=== PATIENT | male | born 1980 | race Caucasian/White ===

== ENCOUNTER 2017-06-11 11:01 | Outpatient (CLI) | payer OTHER ==
[~2017-06-11 11:01] MED LIST: GADOPENTETATE DIMEGLUMINE 5 ML VIAL IVP ONE; IOTHALAMATE MEGLUMINE 50 ML VIAL ONE
[2017-06-11] MEDS ORDERED: GADOPENTETATE DIMEGLUMINE 5 ML VIAL IVP ONE (12:04)
[2017-06-11] MEDS ORDERED: IOTHALAMATE MEGLUMINE 50 ML VIAL IVP ONE (12:04)
[2017-06-11] MEDS ORDERED: LIDOCAINE 1% 10 ML MDV SUBQ ONE (12:04)
--- NOTE | 2017-06-11 12:47 | XRAY Report ---
FLUOROSCOPICALLY-GUIDED RIGHT SHOULDER INJECTION FOR MR ARTHROGRAM: 06/11/2017 CLINICAL INDICATION: Pain. FINDINGS: Following obtaining informed consent, the patient's right shoulder was prepped and draped in the usual sterile fashion. The skin and soft tissues were anesthetized with lidocaine. A spinal needle was inserted into the right glenohumeral joint, and following confirmation of needle positioning, a combination of iodinated contrast, dilute gadolinium, and lidocaine was injected intraarticularly. The patient tolerated the procedure well. No immediate complications. Spot image reveals no evidence of contrast extravasation. IMPRESSION: SUCCESSFUL RIGHT SHOULDER INJECTION FOR MR ARTHROGRAM. FLUOROSCOPY TIME: 24 seconds; 1 spot image obtained. TD: 06/11/2017 12:47
--- NOTE | 2017-06-11 14:41 | MRI Report ---
EXAM: RIGHT SHOULDER MRI ARTHROGRAM WITH CONTRAST EXAM DATE: 06/11/2017 12:23 PM. CLINICAL HISTORY: Pain in right shoulder. COMPARISON: None. TECHNIQUE: Multiplanar, multisequence T1-weighted and fluid-sensitive sequences of the shoulder after an arthrographic injection of dilute gadolinium, dictated under a separate exam. Other: None. FINDINGS: Rotator cuff: Partial-thickness distal articular surface and insertional tear of the supraspinatus me asures approximately 0.9 cm anteroposterior and 1.2 cm medial to lateral. Some ill-defined fraying al johny the articular aspect of the infraspinatus insertion. No high-grade or full-thickness rotator cuff tear identified. Patchy edema throughout the distal supraspinatus and infraspinatus. No rotator cuff muscle atrophy or fatty replacement. Long head biceps tendon: Intact demonstrating normal course, signal and morphology. Labrum: Some blunting and fraying at the posterior superior labrum. Remainder of the labrum appears i ntact. Bones and articular surfaces: No significant articular cartilage defects. Acromioclavicular joint: Moderate degenerative change. Type II acromion. Deformity of the distal clav icle may relate to old trauma. IMPRESSION: 1. Low-grade partial-thickness distal articular surface and insertional tear of the supraspinatus ricardo roximately 0.9 x 1.2 cm. 2. Mild fraying along the articular aspect of the infraspinatus insertion. 3. Some blunting and fraying at the posterior superior labrum. Labrum otherwise intact. 4. Moderate degenerative change at the acromioclavicular joint. Likely old posttraumatic deformity of the distal clavicle. [facility] MUSCULOSKELET[facility] RADIOLOGY SECTION Referring Provider Line: [phone] SITE ID: [id number]
== END 2017-06-11 11:02 | disposition home or self-care (01) ==
LOC: DI 11:01
PROVIDERS: ATTEND Student in an Organized Health Care Education/Training Program
DX: M75.101 Unspecified rotator cuff tear or rupture of right shoulder, not specified as traumatic (principal); M19.011 Primary osteoarthritis, right shoulder
CPT/HCPCS: 23350; 73222; 77002; Q9961